=== PATIENT | female | born 2000 | race African-American/Black ===

== ENCOUNTER 2020-03-26 13:33 | Inpatient (IN) ==
[2020-03-26] MEDS ORDERED: ONDANSETRON 4 MG/2 ML VIAL IV PRN ×2 (14:14→16:54)
[2020-03-26] MEDS ORDERED: BUTORPHANOL 2 MG/ML VIAL IV PRN (14:14)
[2020-03-26] MEDS ORDERED: CITRIC ACID/SODIUM CITRATE 30 ML UDCUP PO ONE (14:18)
[2020-03-26] MEDS ORDERED: ONDANSETRON 4 MG/2 ML VIAL IV ONE (14:18)
[2020-03-26] MEDS ORDERED: diphenhydrAMINE 50 MG/1 ML VIAL IV PRN ×2 (14:18)
[2020-03-26] MEDS ORDERED: NALOXONE 0.4 MG/ML VIAL IV PRN (14:18)
[2020-03-26] MEDS ORDERED: LACTATED RINGERS 1,000 ML IV ONE (14:18)
[2020-03-26] MEDS ORDERED: ePHEDrine 50 MG/ML VIAL IV PRN (14:18)
[2020-03-26] MEDS ORDERED: LACTATED RINGERS 250 ML IV PRN (14:18)
[2020-03-26] MEDS ORDERED: PROMETHAZINE 25 MG/1 ML VIAL IM ONE (14:18)
[2020-03-26] MEDS ORDERED: hydrOXYzine HCL 25 MG/1 ML VIAL IM PRN (14:18)
[2020-03-26] MEDS ORDERED: FAMOTIDINE 20 MG/2 ML VIAL IV ONE (14:18)
[2020-03-26 14:44] LABS: Basophils % 0.2 % (0.0-0.8); Hematocrit 35.4 VOL% (35.7-47.0); Hemoglobin 11.8 GM/DL (12.0-16.0); Immature Granulocytes % 0.4 %; Immature Granulocytes Absolute 0.06 #; Lymphocytes # 2.4 10*3/uL (1.4-4.0); Lymphocytes % 15.3 % (21.3-54.2); Mean Corpuscular HGB Conc 33.3 GM/DL (32-36); Mean Corpuscular Volume 89.8 FL (87-102); Mean Platelet Volume 9.7 FL (9.6-12.0); Monocytes % 6.2 % (1.7-12.7); Neutrophils % 77.9 % (38.7-73.9); Platelet Count 219 T/CUMM (130-400); Red Blood Count 3.94 MC/CUMM (3.8-5.5); Red Cell Distribution Width 13.8 % (9.3-17.3); White Blood Count 15.5 T/CUMM (4-12)
[2020-03-26] MEDS ORDERED: SODIUM CHLORIDE 0.9% 100 ML IV ONE (15:13)
[2020-03-26] MEDS ORDERED: AMPICILLIN 2,000 MG VIAL ONE (15:13)
[2020-03-26] MEDS ORDERED: AMPICILLIN INJ 2,000 MG in SODIUM CHLORIDE 0.9% 100 ML IV ONE (15:14)
[2020-03-26] MEDS: LACTATED RINGERS 1,000 ML IV SCH ×2 (15:25→17:49)
[2020-03-26] MEDS: fentaNYL 2 MCG/ROPIV 0.2% EPID 100 ML EPIDURAL SCH (15:35)
[2020-03-26] MEDS ORDERED: TRANEXAMIC ACID 1,000 MG/10 ML VIAL ONE (16:10)
[2020-03-26] MEDS ORDERED: miSOPROStoL 200 MCG TABLET ONE (16:10)
[2020-03-26] MEDS ORDERED: OXYTOCIN/LR 20 UNIT/1,000 ML BAG IV ONE ×2 (16:10→16:54)
[2020-03-26] MEDS ORDERED: CARBOPROST TROMETHAMINE 250 MCG/ML AMP IM ONE (16:11)
[2020-03-26] MEDS ORDERED: METHYLERGONOVINE 0.2 MG/1 ML AMP ONE (16:11)
[2020-03-26] MEDS ORDERED: METHYLERGONOVINE 0.2 MG/1 ML AMP IM ONE (16:40)
[2020-03-26 16:50] LABS: Cord Arterial Blood HCO3 19.7 MMOL/L
[2020-03-26 16:54] LABS: Cord Venous Blood HCO3 20.3 MMOL/L; Cord Venous Blood PCO2 43.6 MMHG; Cord Venous Blood PO2 25.2
[2020-03-26] MEDS ORDERED: RHO(D) IMMUNE GLOBULIN 300 MCG SYRINGE IM ONE (16:54)
[2020-03-26] MEDS ORDERED: ACETAMINOPHEN 325 MG TABLET PO PRN (16:54)
[2020-03-26] MEDS ORDERED: DIPH/TET/ACEL PERT BOOSTER VACCINE 0.5 ML VIAL IM ONE (16:54)
[2020-03-26] MEDS ORDERED: HYDROCORTISONE 2.5% RECTAL CREAM 30 GM TUBE TOP PRN (16:54)
[2020-03-26] MEDS ORDERED: WITCH HAZEL PADS 100/JAR TOP PRN (16:54)
[2020-03-26] MEDS ORDERED: LANOLIN 50% CREAM 0.3 OZ TUBE TOP PRN (16:54)
[2020-03-26] MEDS ORDERED: BISACODYL 10 MG SUPP RECTAL PRN (16:54)
[2020-03-26] MEDS ORDERED: MEASLES/MUMPS/RUBELLA VACCINE 0.5 ML VIAL SUBCUT ONE (16:54)
[2020-03-26 17:53] LABS: Basophils % 0.2 % (0.0-0.8); Hematocrit 29.9 VOL% (35.7-47.0); Hemoglobin 9.4 GM/DL (12.0-16.0); Immature Granulocytes % 0.6 %; Lymphocytes # 2.3 10*3/uL (1.4-4.0); Lymphocytes % 13.5 % (21.3-54.2); Mean Corpuscular HGB Conc 31.4 GM/DL (32-36); Mean Corpuscular Volume 93.7 FL (87-102); Mean Platelet Volume 9.1 FL (9.6-12.0); Monocytes % 2.8 % (1.7-12.7); Neutrophils % 82.9 % (38.7-73.9); Platelet Count 297 T/CUMM (130-400); Red Blood Count 3.19 MC/CUMM (3.8-5.5); Red Cell Distribution Width 13.9 % (9.3-17.3); White Blood Count 16.9 T/CUMM (4-12)
[2020-03-26 18:21] LABS: Bacteria,Urine Occasional /HPF (Few); Bilirubin,Urine Negative (Negative); Blood, Urine Negative (Negative); Glucose,Urine (UA) Negative (Negative); Ketones,Urine 5 mg/dL (Negative); Mucus,Urine Occasional /LPF (Occasional); Nitrite,Urine Negative (Negative); Protein,Urine 30 MG/DL; RBC,Urine 1 /HPF (0-4); Squamous Epithelial Cell,Urine Occasional /HPF (0-10); Urine Appearance CLEAR (Clear); Urine Color Amber (Yellow); Urine Specific Gravity 1.033 (1.001-1.035); WBC,Urine 3 /HPF (0-6)
[2020-03-26 18:22] LABS: Alanine Aminotransferase 12 U/L (13-56); Albumin 2.5 G/DL (3.4-5.0); Alkaline Phosphatase 166 U/L (45-117); Aspartate Amino Transferase 11 U/L (0-37); Bilirubin,Total < 0.39 MG/DL (0.2-1.0); Blood Urea Nitrogen 6 MG/DL (7-18); Calcium 8.6 MG/DL (8.5-10.1); Carbon Dioxide 18 MMOL/L (21-32); Estimated Glom Filtration Rate 113 ML/MIN; Glucose 103 MG/DL (74-106); Osmolality,Calculated 278.3 MOS/KG (273-304); Sodium 141 MMOL/L (136-145); Total Protein 6.1 G/DL (6.4-8.3)
[2020-03-26] MEDS: PIPERACILLIN/TAZOBACTAM 3,375 MG in SODIUM CHLORIDE 0.9% 100 ML IV SCH (18:26)
[2020-03-26 19:33] LABS: Band Neutrophils 7 % (0-10); Lymphocytes 10 % (20-55); Segmented Neutrophils 79 % (50-85); Smudge Cells Few; Total Cells Counted 100
[2020-03-26 19:34] LABS: Platelet Estimate Adequate
[2020-03-26] MEDS: oxyCODONE/ACETAMINOPHEN 5-325 MG TABLET PO PRN (20:55)
[2020-03-26] MEDS ORDERED: AMPICILLIN INJ 2,000 MG in SODIUM CHLORIDE 0.9% 100 ML IV SCH (21:00)
[2020-03-26] MEDS: DOCUSATE SODIUM 100 MG CAPSULE PO SCH (21:15)
[2020-03-26] MEDS: BENZOCAINE 20%/MENTHOL 0.5% SPRAY 56 GM CAN TOP PRN (22:53)
[2020-03-26] MEDS: ACETAMINOPHEN 500 MG TABLET PO SCH (23:16)
[2020-03-27 00:44] LABS: Basophils % 0.2 % (0.0-0.8); Hematocrit 26.6 VOL% (35.7-47.0); Hemoglobin 8.8 GM/DL (12.0-16.0); Immature Granulocytes % 0.7 %; Immature Granulocytes Absolute 0.16 #; Lymphocytes # 2.6 10*3/uL (1.4-4.0); Lymphocytes % 11.3 % (21.3-54.2); Mean Corpuscular HGB Conc 33.1 GM/DL (32-36); Mean Corpuscular Volume 89.3 FL (87-102); Mean Platelet Volume 9.9 FL (9.6-12.0); Monocytes % 7.5 % (1.7-12.7); Neutrophils % 80.3 % (38.7-73.9); Platelet Count 209 T/CUMM (130-400); Red Blood Count 2.98 MC/CUMM (3.8-5.5); Red Cell Distribution Width 13.8 % (9.3-17.3); White Blood Count 22.9 T/CUMM (4-12)
[2020-03-27] MEDS: fentaNYL 2 MCG/ROPIV 0.2% EPID 100 ML EPIDURAL SCH (01:15)
[2020-03-27] MEDS: LACTATED RINGERS 1,000 ML IV SCH (01:39)
[2020-03-27] MEDS: PIPERACILLIN/TAZOBACTAM 3,375 MG in SODIUM CHLORIDE 0.9% 100 ML IV SCH ×3 (02:45→23:18)
[2020-03-27 03:08] LABS: Lymphocytes 9 % (20-55); Platelet Estimate Normal; Segmented Neutrophils 86 % (50-85); Total Cells Counted 100
[2020-03-27 03:09] LABS: Microcytosis Slight
[2020-03-27 03:11] LABS: Stomatocytes Few
[2020-03-27 03:12] LABS: Polychromasia Few
[2020-03-27] MEDS: oxyCODONE/ACETAMINOPHEN 5-325 MG TABLET PO PRN ×3 (03:17→23:17)
[2020-03-27] MEDS: IBUPROFEN 800 MG TABLET PO PRN ×2 (03:17→14:28)
[2020-03-27] MEDS: BENZOCAINE 20%/MENTHOL 0.5% SPRAY 56 GM CAN TOP PRN (03:29)
[2020-03-27] MEDS: ACETAMINOPHEN 500 MG TABLET PO SCH (05:04)
[2020-03-27 07:09] LABS: Basophils # 0.1 10*3/uL (0.0-0.2); Basophils % 0.2 % (0.0-0.8); Hematocrit 22.7 VOL% (35.7-47.0); Hemoglobin 7.5 GM/DL (12.0-16.0); Immature Granulocytes % 0.7 %; Immature Granulocytes Absolute 0.15 #; Lymphocytes # 3.9 10*3/uL (1.4-4.0); Lymphocytes % 17.8 % (21.3-54.2); Mean Corpuscular Volume 90.4 FL (87-102); Mean Platelet Volume 10.2 FL (9.6-12.0); Monocytes % 7.8 % (1.7-12.7); Neutrophils % 73.5 % (38.7-73.9); Platelet Count 203 T/CUMM (130-400); Red Blood Count 2.51 MC/CUMM (3.8-5.5); White Blood Count 21.8 T/CUMM (4-12)
[2020-03-27 07:36] LABS: Band Neutrophils 1 % (0-10); Eosinophils 1 % (0-10); Hypochromasia 1+; Lymphocytes 22 % (20-55); Microcytosis 1+; Platelet Estimate Adequate; Segmented Neutrophils 69 % (50-85); Total Cells Counted 100
[2020-03-27] MEDS ORDERED: SODIUM CHLORIDE 0.9% 1,000 ML IV PRN (08:30)
[2020-03-27] MEDS ORDERED: ACETAMINOPHEN 500 MG TABLET PO PRN (08:35)
[2020-03-27] MEDS: DOCUSATE SODIUM 100 MG CAPSULE PO SCH ×2 (09:40→20:44)
[2020-03-27] MEDS ORDERED: RHO(D) IMMUNE GLOBULIN 300 MCG SYRINGE IM ONE (13:59)
[2020-03-27 18:16] LABS: Basophils # 0.1 10*3/uL (0.0-0.2); Basophils % 0.3 % (0.0-0.8); Eosinophils % 0.2 % (0.00-10.9); Immature Granulocytes % 0.9 %; Immature Granulocytes Absolute 0.16 #; Lymphocytes # 3.5 10*3/uL (1.4-4.0); Lymphocytes % 18.8 % (21.3-54.2); Mean Corpuscular HGB Conc 33.3 GM/DL (32-36); Mean Corpuscular Volume 88.6 FL (87-102); Mean Platelet Volume 9.6 FL (9.6-12.0); Monocytes % 6.5 % (1.7-12.7); Neutrophils % 73.3 % (38.7-73.9); Platelet Count 166 T/CUMM (130-400); Red Blood Count 2.71 MC/CUMM (3.8-5.5); Red Cell Distribution Width 14.1 % (9.3-17.3); White Blood Count 18.4 T/CUMM (4-12)
[2020-03-27] MEDS: FERROUS SULFATE 325 MG TABLET PO SCH (20:44)
[2020-03-28] MEDS: PIPERACILLIN/TAZOBACTAM 3,375 MG in SODIUM CHLORIDE 0.9% 100 ML IV SCH (06:58)
[2020-03-28] MEDS: FERROUS SULFATE 325 MG TABLET PO SCH ×2 (08:21→20:46)
[2020-03-28] MEDS: DOCUSATE SODIUM 100 MG CAPSULE PO SCH ×2 (08:21→20:46)
[2020-03-28] MEDS: oxyCODONE/ACETAMINOPHEN 5-325 MG TABLET PO PRN ×2 (08:33→20:53)
[2020-03-28] MEDS: CIPROFLOXACIN 500 MG TABLET PO SCH (16:10)
[2020-03-28] MEDS: IBUPROFEN 800 MG TABLET PO PRN (16:11)
[2020-03-29 04:12] VITALS: BP 137/80
[2020-03-29 06:32] LABS: Basophils % 0.2 % (0.0-0.8); Eosinophils # 0.1 10*3/uL (0.0-0.87); Eosinophils % 0.6 % (0.00-10.9); Hemoglobin 8.3 GM/DL (12.0-16.0); Immature Granulocytes % 1.4 %; Immature Granulocytes Absolute 0.22 #; Lymphocytes # 4.4 10*3/uL (1.4-4.0); Lymphocytes % 27.3 % (21.3-54.2); Mean Corpuscular HGB Conc 33.2 GM/DL (32-36); Mean Corpuscular Volume 90.6 FL (87-102); Mean Platelet Volume 9.5 FL (9.6-12.0); Monocytes % 4.6 % (1.7-12.7); Neutrophils % 65.9 % (38.7-73.9); Platelet Count 185 T/CUMM (130-400); Red Blood Count 2.76 MC/CUMM (3.8-5.5); Red Cell Distribution Width 14.1 % (9.3-17.3); White Blood Count 16.2 T/CUMM (4-12)
[2020-03-29] MEDS: DOCUSATE SODIUM 100 MG CAPSULE PO SCH (08:43)
[2020-03-29] MEDS: FERROUS SULFATE 325 MG TABLET PO SCH (08:43)
[2020-03-29] MEDS: CIPROFLOXACIN 500 MG TABLET PO SCH (08:43)
== END 2020-03-29 10:40 | disposition home or self-care (01) | DRG 560 ==
LOC: N.LDOUT 13:33 → N.LD 13:36 → N.OB 03-27 11:33 → N.LD 03-28 13:37
PROVIDERS: ADMIT Obstetrics & Gynecology; ATTEND Obstetrics & Gynecology